=== PATIENT | female | born 1980 | race Caucasian/White ===

== ENCOUNTER → 2019-08-23 | Outpatient (CLI) | payer OTHER ==
--- NOTE | 2019-08-23 15:31 | EST ---
EXERCISE STRESS DATE OF SERVICE: 08/23/2019 AGE: 38 SEX: F HT: 62" WT: 182 PROTOCOL: Thierry protocol. STAGE: 4 DURATION OF EXERCISE: 9 minutes HEART RATE REST: 78 BLOOD PRESSURE REST: 116/79 MAXIMUM HEART RATE ACHIEVED: 159 MAXIMUM BLOOD PRESSURE: 139/69 85% MPHR: 155 100% MPHR: 182 METS: 11.1 INDICATIONS: Chest pain. CLINICAL INFORMATION: Chest pain. STRESS DATA: Heart rate 78, blood pressure is 116/79 mmHg. Baseline EKG showed sinus mechanism. The patient exercised on the treadmill according to Thierry protocol for a total of 9 minutes and achieved 11.1 METs. Max heart rate was 159, which is about 87% of maximum predicted heart rate. Maximum blood pressure was 139/69 mmHg. Clinically, the patient did not have any symptoms of chest pain or chest discomfort. The EKG showed about 0.[address]-segment depression. CONCLUSION: 1. Excellent exercise tolerance. 2. The patient did not report any symptoms of chest pain in response to exercise. 3. Good augmentation in the blood pressure and heart rate in response to exercise. 4. Mild EKG changes in response to exercise, did not meet the criteria for ischemia. MMODL / IJN: [id number] /
== END | disposition home or self-care (01) ==
LOC: RADNMMAIN 08:44
PROVIDERS: ATTEND Family Medicine
DX: R07.89 Other chest pain (principal)
CPT/HCPCS: 93017

== ENCOUNTER → 2020-02-07 | Outpatient (CLI) | payer OTHER ==
--- NOTE | 2020-02-09 09:33 | MM ---
Reason for exam: clinical finding. History: Took hormonal contraceptives for 1 year beginning at age 20. Physical Findings: Nurse did not find any significant physical abnormalities on exam. MG Diagnostic Mammo w CAD VLADISLAV Bilateral CC and MLO view(s) were taken. There are scattered fibroglandular densities. No suspicious abnormality. No significant new findings when compared with previous films. These results were verbally communicated with the patient and result sheet given to the patient on 02/07/20. ASSESSMENT: Benign, BI-RAD 2 RECOMMENDATION: Routine screening mammogram of both breasts in 1 year.
--- NOTE | 2020-02-09 09:34 | USB ---
Reason for exam: clinical finding. History: Took hormonal contraceptives for 1 year beginning at age 20. US Breast LT Left complete breast ultrasound includes all four quadrants, the retroareolar region and axilla. Finding demonstrates no cystic or solid lesion seen. No suspicious sonographic finding. These results were verbally communicated with the patient and result sheet given to the patient on 02/07/20. ASSESSMENT: Negative, BI-RAD 1 RECOMMENDATION: Surgical consultation of the left breast. Manage on a clinical basis with regard to green discharge. Called Dr. Shipman's office with mammographic findings and has scheduled an appointment for the patient for 02/23/20 at 2:[address] Padilla. PRELIMINARY REPORT CALLED AND FAXED TO DR. PADILLA ON 02/09/20.
== END | disposition home or self-care (01) ==
LOC: RADMAMWWP 14:14
PROVIDERS: ATTEND Family Medicine
DX: N64.52 Nipple discharge (principal)
CPT/HCPCS: 77066

== ENCOUNTER → 2020-02-23 | Outpatient (CLI) | payer OTHER ==
[2020-02-23 14:30] VITALS: BP 118/70; PULSE 87; RESP 18; TEMP 98.2
--- NOTE | 2020-02-23 14:54 | P.GSHP ---
History of Present Illness H&P Date: 02/23/20 Chief Complaint: left nipple discharge Tamar is a 39-year-old white female with a complaint of left nipple green discharge which started approximately a month ago. It only occurred when she squeezed the breast. And it has stopped. She does have bilateral nipple di scharge which is fatty in nature for many years. She has never seen any blood in the discharge. She had a bilateral mammogram performed on . This was benign by report 2. She also had an ultrasound of the left breast on the same date which was negative BIRADS 1. She does not feel any new lumps masses or nodules in her breast. On the left side she does feel some discomfort around the nipple areolar complex with some sharp discomfort intermittently. Some skin changes under the breast which have some discharge at times. She has not had any trauma or infection in the breast. No history of any surgery in the breast. Caffeine: 5 cans of coke/day Nicotine: One pack per day for 15 years: She is not exposed to secondhand smoke Theophylline: Occasionally Hormones: Negative Family history: 1. paternal grandfather: lymphoma 2. paternal great aunt: lung cancer Hormonal History: menarche: 11 , breast fed: yes, age at first : 30 periods regular BCP: 1 year hormones: none Surgical History: 1. Left tibial fracture 2. 3 C-sections Medical History: 1. Scoliosis and neck 2, carpal tunnel syndrome possibly 3. anxiety Social HIstory: smoke: 1 PPD/15 years alcohol: none drugs: none - Constitutional Constitutional: Reports sweats - EENT Comment: Migraines related to neck pain Eyes: denies blurred vision, denies pain Ears: deny: decreased hearing, tinnitus Ears, nose, mouth and throat: Denies headache, Denies sore throat - Breasts Breasts: bilateral: as per HPI - Cardiovascular Cardiovascular: Denies chest pain, Denies shortness of breath - Respiratory Comment: smoker - Gastrointestinal Gastrointestinal: Denies abdominal pain, Denies diarrhea, Denies nausea, Denies vomiting - Genitourinary (Female) Genitourinary: Denies dysuria, Denies hematuria - Menstruation Menstruation: Reports period normal - Musculoskeletal Comment: back pain - Integumentary Integumentary: Denies pruritus, Denies rash - Neurological Neurological: Reports numbness, Denies weakness - Psychiatric Psychiatric: Reports anxiety, Reports depression - Endocrine Endocrine: Reports weight change, Denies fatigue - Hematologic/Lymphatic Comment: none - Allergic/Immunologic Comment: none Past Medical History History of Any Multi-Drug Resistant Organisms: None Reported Smoking Status: Current every day smoker Medications and Allergies Home Medications Medication Instructions Recorded Confirmed Type DULoxetine HCL [Cymbalta] 60 mg PO BID 02/23/20 02/23/20 History Multivit with Calcium,Iron,Min 1 each PO DAILY 02/23/20 02/23/20 History [Women's Multivitamin] busPIRone HCL 10 mg PO BID 02/23/20 02/23/20 History Allergies Allergy/AdvReac Type Severity Reaction Status Date / Time No Known Allergies Allergy Unverified 02/23/20 14:30 Surgical - Exam Vital Signs Temp Pulse Resp BP Pulse Ox 98.2 F 87 18 118/70 97 02/23/20 14:19 02/23/20 14:19 02/23/20 14:19 02/23/20 14:19 02/23/20 14:19 BMI 33.5 - General well developed, well nourished, no distress, obese - Eyes normal ocular movement - ENT no hearing loss, no congestion - Neck no masses, trachea midline - Respiratory normal respiratory effort, clear to auscultation - Cardiovascular Rhythm: regular Heart Sounds: normal: S1, S2 - Abdomen Abdomen: soft, non tender, no guarding, no rigid, no rebound - Integumentary normal turgor - Neurologic no disoriented, no combative - Musculoskeletal normal gait, normal posture - Psychiatric oriented to time, oriented to person, oriented to place, speech is normal, memory intact breast exam: BRA: 38DD inspection: ptosis grade 2/3 palpation: Right breast: Multi-positional exam fibrocystic changes, no dominant mass or nodule is of concern Right axilla: No adenopathy of concern Left breast: Multi-positional exam fibrocystic changes no dominant mass or nodules of concern, no nipple discharge of concern on today's exam Left axilla: No adenopathy of concern Results Mammogram and ultrasound results reviewed Assessment and Plan Assessment: Impression: 1. Nipple discharge is believed to be related to fibrocystic breast disease 2. No dominant mass or nodule is of concern 3. Repeat bilateral mammogram in 1 year Plan: 1. Patient will be counseled regarding causes of fibrocystic breast changes which include caffeine and nicotine 2. Patient to do self breast exams if she notes anything of concern she will call us immediately 3. Otherwise repeat bilateral mammogram in 1 year with physician examined that time 4. Patient being given a book on Salvino Aurelia of breast pain which also discuss his fibrocystic breast changes Cc: Dr. Shipman encounter 40 minutes, > 50% of time in planning and counselling
== END | disposition home or self-care (01) ==
LOC: WWCWWP 13:56
PROVIDERS: ATTEND Surgery
DX: Z53.9 Procedure and treatment not carried out, unspecified reason (principal)

== ENCOUNTER → 2024-05-03 | Outpatient (CLI) | payer OTHER ==
--- NOTE | 2024-05-11 12:25 | MM ---
Reason for Exam: Screening (asymptomatic). Last mammogram was performed 4 year(s) and 2 month(s) ago. Patient History: Menarche at age 11. First Full-Term at age 30. Late child-bearing (after 30). Hormonal Contraceptives for 1 year from age 20 until age 21. Last menstrual period: 12/23/2023 Risk Values: Lissette 5 year model risk: 1.1%. NCI Lifetime model risk: 14.4%. Prior Study Comparison: 02/07/2020 Bilateral Diagnostic Mammogram, LOCATED [facility]IN [facility]. Tissue Density: The breasts are almost entirely fatty. Findings: Analyzed By CAD. Right breast: There is no suspicious group of microcalcifications or new suspicious mass. Left breast: There is no suspicious group of microcalcifications or new suspicious mass. Overall Assessment: Negative, BI-RAD 1 Management: Screening Mammogram of both breasts in [address] [facility] will attempt to contact patient to return for supplemental views and ultrasound if indicated. Patient should continue monthly self-breast exams. A clinical breast exam by your physician is recommended on an annual basis. This exam should not preclude additional follow-up of suspicious palpable abnormalities. Note on Lissette scores and lifetime risk: 1. A Lissette score greater than 3% is considered moderate risk. If this is the case, consider specialist referral to assess eligibility for a risk reducing agent. 2. If overall lifetime risk for the development of breast cancer is 20% or higher, the patient may qualify for future screening with alternating mammogram and breast MRI. Electronically signed and approved by: Tulio Chaudhary DO
== END | disposition home or self-care (01) ==
LOC: RADMAMWWP 16:26
PROVIDERS: ATTEND Family Medicine
DX: Z12.31 Encounter for screening mammogram for malignant neoplasm of breast (principal)
CPT/HCPCS: 77063; 77067